=== PATIENT | female | born 1970 | race Caucasian/White ===

== ENCOUNTER 2021-02-08 12:17 | Observation (INO) | payer OTHER, SELFPAY ==
[2021-02-08] VITALS (53 sets, daily range): BP systolic 84–128; BP diastolic 55–85; PULSE 69–93; RESP 10–26; TEMP 36.6–36.7; O2SAT 98–100; BMI 26.8
--- NOTE | ~2021-02-08 | XR_ITS ---
EXAMINATION: XR chest 1V portable EXAM DATE: 02/08/2021 13:09 INDICATION: Chest pain. TECHNIQUE: Portable AP frontal chest x-ray was obtained. There is no prior study for comparison. FINDINGS: The lungs are clear. There are no pleural effusions. Cardiac silhouette is prominent but magnified on this AP technique. There is no pneumothorax suspected. The bones and soft tissues are unremarkable. IMPRESSION: No acute cardiopulmonary findings. Reviewed, dictated and finalized at location A.
--- NOTE | ~2021-02-08 | CT_ITS ---
EXAMINATION: CTA chest PE protocol DATE: 02/08/2021 13:21 INDICATION: Chest pain, dyspnea TECHNIQUE: Computed tomography angiography (CTA) of the chest was performed with 100 mL Omnipaque-350 intravenous contrast timed to evaluate the pulmonary arteries. Coronal maximum intensity projection 3D-reconstructions were created by the technologist. Automated exposure control and iterative reconst ruction technique were employed. Exam dose: 318.53 mGy-cm total exam DLP. COMPARISON: 02/08/2021 portable AP chest FINDINGS: There is diagnostic contrast enhancement of the pulmonary arteries and no evidence of pulmo nary embolism. No thoracic aortic aneurysm or dissection. Normal heart size. No pericardial or pleural effusion. No hilar or mediastinal mass lesion or lymph adenopathy. No pulmonary infiltrate or consolidation or pulmonary mass lesion is detected. Old left anterior third through fifth rib fractures. Old anterior right second, third, fourth and fif th rib fractures. No suspicious osteolytic or osteoblastic lesions. IMPRESSION: No evidence of pulmonary embolism Reviewed, dictated and finalized at Location A. Reviewed, dictated and finalized at location B.
--- NOTE | ~2021-02-08 | NM_ITS ---
EXAMINATION: NM courtney stress w perfusion DATE: 02/09/2021 12:04 INDICATION: Chest pain TECHNIQUE: Rest images were obtained following intravenous administration of 9.7 mCi Tc99m tetrofosmi n (Myoview). The patient was infused intravenously with Lexiscan (Regadenoson). Then, 30.2 mCi Tc99m tetrofosmin (Myoview) was administered intravenously, and stress images were obtained. Data was recon structed into short axis and horizontal and vertical long axis SPECT images. Gated SPECT images were also obtained. COMPARISON: None. FINDINGS: There is no definite reversible or fixed perfusion abnormality to suggest ischemia or infar ction. There is normal left ventricular chamber size, wall motion and ejection fraction. Left ventr icular ejection fraction measures >70%. IMPRESSION: 1. Normal myocardial perfusion at rest and during stress. 2. Left ventricular ejection fraction measuring >70%. Reviewed, dictated and finalized at location A.
--- NOTE | 2021-02-08 12:19 | ECG_ITS ---
Measurements Intervals [place] Rate: 83 P: 55 CO: 152 QRS: 46 QRSD: 92 T: 38 QT: 397 QTc: 469 Interpretive Statements SINUS RHYTHM INCOMPLETE RIGHT BUNDLE BRANCH BLOCK LOW QRS VOLTAGE IN PRECORDIAL LEADS BASELINE ARTIFACT- I, III, AVL BORDERLINE ECG Electronically Signed On 02-08-2021 12:28:24 CDT by Luis M Estevez D.O.
--- NOTE | 2021-02-08 12:39 | ED.CHESTPAIN ---
HPI - Chest Pain General Chief Complaint: Chest Pain Stated Complaint: Chest pain, arm weakness, back pain Time Seen by Provider: 02/08/21 12:21 Source: RN notes reviewed History of Present Illness HPI narrative: Patient presents to emergency department from home for chest pain. Patient states symptoms again proximally 2 hours ago pain is located left side of the chest described as a pressure radiates in the left shoulder and in the left back with tingling in the left arm. Patient states that intermittently during the day today she has had feelings of numbness and tingling in her bilateral arms she states she does have associated shortness of breath denies any fevers or chills abdominal pain nausea vomiting or any other history. Denies any previous cardiac history Related Data Allergies Allergy/AdvReac Type Severity Reaction Status Date / Time No Known Allergies Allergy Verified 02/08/21 12:32 Review of Systems Review of Systems: Gen.: Denies fevers or chills Eyes: Denies eye pain or visual change ENT: Denies congestion Respiratory: Reports shortness of breath CV: See HPI GI: Denies abdominal pain nausea, emesis or diarrhea Musculoskeletal: Denies back pain or muscle pain Neuro: There is numbness and tingling in bilateral arms Skin: Denies rash Except as documented, all other systems reviewed and negative [facility] Past Medical History Medical History (Updated 02/08/21 @ 17:03 by Luciano Jean-Baptiste DO) Hypertension Social History Social History (Updated 02/08/21 @ 12:40 by Luciano Jean-Baptiste DO) Smoking status: Current every day smoker Exam Narrative: APPEARANCE: No acute distress, nontoxic, resting in bed EYES: EOMI HEENT: Normocephalic, atraumatic, OMM Neck: Supple no midline chest palpation full range of motion of the neck bilaterally without pain RESPIRATORY: No respiratory distress Clear to auscultation bilaterally with no rhonchi wheezing or rales. CARDIOVASCULAR: Regular rate and rhythm without murmurs rubs or gallops. Bilateral radial pulse 2+ ABDOMINAL: Soft, nontender, nondistended, no rebound or guarding MUSCULOSKELETAl: Moves all extremities. No clubbing, cyanosis or edema. NEURO: Awake and alert. Following commands, speech normal, no focal deficits SKIN:: Warm, dry. No rashes lesions or abrasions PSYCHIATRIC: Normal affect/mood, Course Course Emergency Course: Patient states pain is resolved following Toradol Discussed with Dr. Estevez agrees with admission to chest pain center Discussed with patient and family results of workup and diagnosis. Discussed need for admission. Patient and family understand and agree to current treatment plan Vital Signs Vital signs: Vital Signs Temperature 97.8 F 02/08/21 12:27 Pulse Rate 93 02/08/21 12:27 Respiratory Rate 18 02/08/21 12:27 Blood Pressure 104/77 02/08/21 12:27 Pulse Oximetry 100 02/08/21 12:27 Temperature 97.8 F 02/08/21 12:27 Pulse Rate 91 02/08/21 12:32 Respiratory Rate 18 02/08/21 12:27 Blood Pressure 104/77 02/08/21 12:27 Pulse Oximetry 100 02/08/21 12:27 MDM - Chest Pain Lab Data Result diagrams: 02/08/21 12:40 02/08/21 12:40 Labs: Lab Results 02/08/21 02/08/21 02/08/21 Range/Units 12:40 12:40 12:40 WBC 5.9 (4.5-10.0) K/mm3 RBC 4.53 (4.2-5.4) M/mm3 Hgb 14.4 (12.0-15.0) g/dL Hct 42.2 (37.0-47.0) % MCV 93.2 (80-100) fl MCH 31.8 (26-34) pg MCHC 34.1 (32-36) g/dl RDW 14.9 H (11.5-14.5) % Plt Count 233 (150-375) k/mm3 MPV 10.0 (7.4-10.4) fl Immature Gran % (Auto) 0.3 (0-0.5) % Neut % (Auto) 47.5 (45.5-73.1) % Lymph % (Auto) 39.1 (18.3-44.2) % [place] % (Auto) 9.6 H (2.6-8.5) % Eos % (Auto) 3.0 (0-4.4) % Baso % (Auto) 0.5 (0.2-1.2) % Lymph # (Auto) 2.32 (0.9-3.2) K/mm3 [place] # (Auto) 0.6 (0.1-0.6) K/mm3 Eos # (Auto) 0.2 (0-0.3) K/mm3 Baso # (Auto) 0.0 (0.0-0.1) K/mm3 A
[2021-02-08 12:48] LABS: Basophils Percent Auto 0.5 % (0.2-1.2); Eosinophils Absolute Auto 0.2 K/mm3 (0-0.3); Hematocrit 42.2 % (37.0-47.0); Hemoglobin 14.4 g/dL (12.0-15.0); Immature Granulocyte Absolute 0.02 K/mm3 (0.00-0.031); Immature Granulocyte Percent A 0.3 % (0-0.5); Lymphocytes Absolute Auto 2.32 K/mm3 (0.9-3.2); Lymphocytes Percent Auto 39.1 % (18.3-44.2); Mean Corpuscular HGB Conc 34.1 g/dl (32-36); Mean Corpuscular Hemoglobin 31.8 pg (26-34); Mean Corpuscular Volume 93.2 fl (80-100); Monocytes Absolute Auto 0.6 K/mm3 (0.1-0.6); Monocytes Percent Auto 9.6 % (2.6-8.5); Neutrophils Absolute Auto 2.8 K/mm3 (1.3-6.7); Neutrophils Percent Auto 47.5 % (45.5-73.1); Platelet Count Result 233 k/mm3 (150-375); Red Blood Count 4.53 M/mm3 (4.2-5.4); Red Cell Distribution Width 14.9 % (11.5-14.5); White Blood Count 5.9 K/mm3 (4.5-10.0)
[2021-02-08 12:57] LABS: INR 0.8; Prothrombin Time 10.7 Seconds (11.1-14.7)
[2021-02-08 12:58] LABS: Anion Gap 16 mmol/L (8-16); Blood Urea Nitrogen 22 mg/dL (7-17); Calcium 8.8 mg/dL (8.4-10.2); Carbon Dioxide 18 mmol/L (22-30); Chloride 99 mmol/L (98-107); Estimated CRCL calculation 45 ml/min; Estimated Glomerular Filt Rate 43; Glucose 92 mg/dL (65-110); Partial Thromboplastin Time 23.1 SECONDS (22.3-36.8); Potassium 3.8 mmol/L (3.4-5.0); Sodium 133 mmol/L (137-145)
[2021-02-08 13:10] LABS: Troponin I < 0.012 ng/mL (0.000-0.034)
[2021-02-08] MEDS: SODIUM CHLORIDE 0.9% IV 1,000 ML 999 ML IV CONT (15:04)
[2021-02-08] MEDS: KETOROLAC 30 MG/ML VIAL (*BKC) IV PUSH (15:04)
--- NOTE | 2021-02-08 16:39 | PM.IMHP ---
H&P: HPI History of Present Illness Date/Time: 02/08/21 16:39 Reason for admit: Chest pain. 51 yr old woman presents to ED with chest pain. She has a history of hypertension. She does drink up to 6 vodka drinks a day and smokes 1 ppd. Reports that this morning while sitting watching tv she noted left shoulder pain and pain in between her scapula and tingling in both hands. It also took her breath away. Discomfort comes and goes and right now it's gone. She also noted fatigue in last 2 days such that she is tired just after showering. She also noted chills and headaches off and on but no fevers. She had Covid vaccine in October. Normally she can walk 4 blocks but not in last 2 days. She knows she has arthritis in hip, knees and fingers and she was told by her PCP she may have rheumatoid arthritis. Denies orthopnea, PND, edema, palpitations, dizziness. Chief Complaint: Chest pain Review of Systems Review of Systems: All systems reviewed & are unremarkable except as noted in HPI and below Constitutional: Constitutional: Reports as per HPI, Reports chills, Reports fatigue and Denies fever(s) Cardiovascular: Cardiovascular: Reports as per HPI, Denies chest pain, Denies leg edema and Denies lightheadedness Respiratory: Respiratory: Reports as per HPI and Denies dyspnea Gastrointestinal: Gastrointestinal: Reports as per HPI and Denies abdominal pain Genitourinary: Genitourinary: Reports as per HPI and Denies dysuria Musculoskeletal: Musculoskeletal: Reports as per HPI, Reports back pain, Reports arthralgias and Reports neck pain Neurologic: Reports as per HPI, Denies dizziness and Denies syncope [facility] Past Medical History Medical History (Updated 02/08/21 @ 16:46 by Luis M Estevez DO) Hypertension Social History Social History (Updated 02/08/21 @ 12:40 by Luciano Jean-Baptiste DO) Smoking status: Current every day smoker Meds Home Medications and Allergies Allergies Allergy/AdvReac Type Severity Reaction Status Date / Time No Known Allergies Allergy Verified 02/08/21 12:32 Vital Signs Vital Signs - 24 hr 02/08/21 12:27 02/08/21 12:32 Temperature 97.8 F Pulse Rate 93 91 Respiratory Rate 18 Blood Pressure 104/77 Pulse Oximetry 100 Exam Const: General: cooperative, healthy appearing and comfortable Resp: Auscultation: clear to auscultation bilaterally, no crackles, no rales, no rhonchi and no wheezes Cardio: Jugular venous distension: no JVD Rate: regular rate Rhythm: regular rhythm Heart sounds: no murmurs GI: GI Palp: No abdominal tenderness and Yes Soft to palpation Neuro: General: oriented to person, oriented to place and oriented to time Extrem: Right lower extremity: no edema Left lower extremity: no edema H&P: Results Labs Labs: Short CBC 02/08/21 Range/Units 12:40 WBC 5.9 (4.5-10.0) K/mm3 Hgb 14.4 (12.0-15.0) g/dL Hct 42.2 (37.0-47.0) % Plt Count 233 (150-375) k/mm3 BMP 02/08/21 12:40 Sodium 133 L Potassium 3.8 Chloride 99 Carbon Dioxide 18 L BUN 22 H Creatinine 1.30 H Glucose 92 Calcium 8.8 Cardiac Enzymes 02/08/21 Range/Units 12:40 Troponin I < 0.012 (0.000-0.034) ng/mL Assessment and Plan Assessment and plan (1) Chest pain: Code(s): R07.9 - Chest pain, unspecified Status: Acute Assessment and Plan: Atypical. Probably arthritis related. EKG and 1st troponin are OK. Await 2 more sets of troponin. If OK, then will obtain lexiscan myoview stress test in AM. (2) Tobacco abuse: Code(s): Z72.0 - Tobacco use Status: Acute Assessment and Plan: Counseled regarding smoking cessation. (3) Alcohol abuse: Code(s): F10.10 - Alcohol abuse, uncomplicated Status: Acute Assessment and Plan: Counseled to decrease alcohol intake to no more than 1 in a given day if at all. (4) Fatigue: Code(s): R53.83 - Other fatigue Status: Acute Assessment
[2021-02-08 16:54] LABS: Alanine Aminotransferase 16 U/L (4-35); Albumin Level 4.3 g/dL (3.5-5.1); Alkaline Phosphatase 80 U/L (38-126); Aspartate Amino Transferase 39 U/L (14-36); Bilirubin,Total 0.2 mg/dL (0.2-1.3); Lipase 135 U/L (23-300)
[2021-02-08 17:53] LABS: Troponin I < 0.012 ng/mL (0.000-0.034)
[2021-02-08 18:26] LABS: Cholesterol 201 mg/dL (0-200); HDL Direct 84 mg/dL; Triglycerides 122 mg/dL (<150)
[2021-02-08 18:38] LABS: LDL Cholesterol Direct 90 mg/dL
[2021-02-08] MEDS: ASPIRIN 81 MG CHEWABLE TABLET 324 MG PO (18:45)
--- NOTE | 2021-02-08 19:50 | ECG_ITS ---
Measurements Intervals [place] Rate: 73 P: 48 CO: 176 QRS: 39 QRSD: 108 T: 32 QT: 412 QTc: 454 Interpretive Statements SINUS RHYTHM INCOMPLETE RIGHT BUNDLE BRANCH BLOCK BORDERLINE ECG Electronically Signed On 02-08-2021 23:22:58 CDT by Luis M Estevez D.O.
[2021-02-09] VITALS: BP 129/79; PULSE 70; PULSE 78; RESP 15; TEMP 36.4; O2SAT 99
--- NOTE | 2021-02-09 | ECHO_ITS ---
Patient Info Name: Ana Quan Age: 51 years : 1970 Gender: Female Ht: 64 in Wt: 158 lbs BSA: 1.82 m2 HR: 72 bpm BP: 136 / 87 mmHg Technical Quality: Good Exam Date: 02/09/2021 2:32 PM Exam Location: [facility] Pulmonary Exam Room: [facility] Patient Status: Outpatient Admit Date: 02/08/2021 Staff Ordering Physician: Luis M Estevez DO Production Control Analyst: Rosalia Yung RDCS Attending Provider: Luis M Estevez DO Referring Physician: Herb SEAMAN; Exam Type: CA echo doppler color flow Study Info Indications - FATIQUE HTN CHEST PAIN Complete two-dimensional, color flow and Doppler transthoracic echocardiogram is performed. Summary 1. Complete two-dimensional, color flow and Doppler transthoracic echocardiogram is performed. 2. Left ventricular chamber dimension is normal. 3. Left ventricular systolic function is normal, estimated at 60-65%. 4. The left ventricular diastolic function is grade II diastolic dysfunction. 5. E/e' 9 is minimally elevated. 6. There is trace tricuspid valve regurgitation. 7. No pulmonary hypertension, estimated pulmonary arterial systolic pressure is 28 mmHg. 8. There is trace pulmonic regurgitation. Left Ventricle E/e' 9 is minimally elevated. Left ventricular chamber dimension is normal. Left ventricular systolic function is normal, estimated at 60-65%. The left ventricular diastolic function is grade II diastolic dysfunction. Right Ventricle Right ventricular chamber dimension is normal. Right ventricular systolic function is normal. Left Atria Left atrial chamber dimension is normal. Right Atria Right atrial chamber dimension is normal. Aortic Valve The aortic valve is trileaflet. There is no aortic valve stenosis. There is no aortic valve regurgitation. Pulmonic Valve There is trace pulmonic regurgitation. Mitral Valve There is no mitral valve stenosis. There is no mitral valve regurgitation. Tricuspid Valve There is trace tricuspid valve regurgitation. No pulmonary hypertension, estimated pulmonary arterial systolic pressure is 28 mmHg. Pericardium/Pleural There is no pericardial effusion. Inferior Vena Cava Normal inferior vena cava with >50% collapse upon inspiration consistent with normal right atrial pressure, 5 mmHg. Aorta The aortic root size at the sinus of Valsalva is normal. Left Ventricular Outflow Tract Name Value Normal LVOT 2D LVOT Diameter 2.0 cm LVOT Doppler LVOT Peak Gradient 7 mmHg LVOT Mean Gradient 4 mmHg LVOT VTI 25 cm LVOT VTI/AV VTI Ratio 0.9 LVOT Stroke Volume 77 ml LVOT CO 18.5 l/min LVOT CI 10.2 l/min/m2 Pulmonic Valve Name Value Normal PV Doppler
[2021-02-09 04:00] VITALS: BP 146/76; PULSE 69; PULSE 76; RESP 16; TEMP 36.5; O2SAT 96
[2021-02-09 08:00] VITALS: BP 136/87; PULSE 70; PULSE 74; RESP 11; RESP 9; TEMP 35.9; O2SAT 100; O2SAT 98
--- NOTE | 2021-02-09 08:00 | EST_ITS ---
Patient Info Name: Ana Quan Age: 51 years : 1970 Gender: Female Ht: 64 in Wt: 156 lbs BSA: 1.80 m2 HR: 67 bpm BP: 141 / 85 mmHg Heart Rhythm: Sinus Rhythm Exam Date: 02/09/2021 11:10 AM Exam Location: [facility] Stress Patient Status: Inpatient Admit Date: 02/08/2021 Staff Ordering Physician: Luis M Estevez DO Attending Provider: Luis M Estevez DO Exercise Physician: Luis M Estevez DO Exam Type: CA stress courtney w NM Study Info Indications R07.89 - Other chest pain A regadenoson stress test was performed. Summary 1. 1. Negative lexiscan stress test for ischemic ST changes by ECG criteria. 2. 2. Baseline hypertension. 3. 3. Nuclear scan to follow and will be reported separately. Please correlate with it. 4. 4. Patient informed of the above results. Protocol: Lexiscan Stress ECG Details Stage: REST Duration (min): 1 min : 2 sec HR (bpm): 68 SBP (mmHg): 141 DBP (mmHg): 85 Stage: REST Duration (min): 8 min : 39 sec HR (bpm): 63 SBP (mmHg): 141 DBP (mmHg): 85 Stage: STAGE 1 Duration (min): 0 min : 59 sec HR (bpm): 86 SBP (mmHg): 152 DBP (mmHg): 89 Stage: RECOVERY Duration (min): 1 min : 0 sec HR (bpm): 96 SBP (mmHg): 152 DBP (mmHg): 89 Stage: RECOVERY Duration (min): 1 min : 59 sec HR (bpm): 97 SBP (mmHg): 120 DBP (mmHg): 86 Rest HR: 63 bpm Peak HR: 104 bpm Rest Sys BP: 141 mmHg Peak Sys BP: 152 mmHg Max Pred HR: 170 bpm % Max Pred HR: 61 % Target HR: 145 bpm Max RPP: 15,808 bpm*mmHg Termination Reason: Completed protocol Cardiac Symptoms: Shortness of breath Total Time: 1 min : 0 sec Rest North BP: 85 mmHg Peak North BP: 89 mmHg Total Dose: 0.4 mg Resting ECG Sinus rhythm. Stress ECG No ST changes. Arrhythmias None. Report Signatures
[2021-02-09 12:00] VITALS: BP 176/101; PULSE 74; RESP 11; TEMP 36.1; O2SAT 98
[2021-02-09] MEDS: lisinopriL 20 MG TABLET PO (12:55)
[2021-02-09 16:00] VITALS: PULSE 74
--- NOTE | 2021-02-09 16:07 | PM.DS ---
DS: Admitting Diagnosis Discharge Date 02/09/21 Admitting Diagnosis Chest pain DS: Summary Hospital Course Hospital Course: Patient was admitted through ER for chest pain/shoulder pain/back pain. She was ruled out for PA by troponin and EKG. She had lexiscan myoview stress test that was normal. Echo was essentially normal. No more chest pain or back pain. Vitals are stable. She does admit to having arthritis. May d/c home and advise to f/u with her PCP in next 1-2 weeks. Continue Lisinopril 20 mg daily for high BP. Disposition: Home. Activity: As tolerated. Diet: Low sodium diet. Time spent discussing smoking cessation with patient: 3 to 10 minutes Status at Discharge Functional status at discharge: independent ambulation Overall status at discharge: patient is back to baseline Time Spent with Patient Time attestation: Total time spent providing and/or coordinating discharge services: Time spent: Less than 30 minutes DS: Data Data Completed and Pending Labs on day of discharge: Labs from last 24 hours 02/08/21 02/08/21 02/08/21 17:18 17:18 15:51 Total Bilirubin Direct Bilirubin AST ALT Alkaline Phosphatase Troponin I < 0.012 Cancelled Total Protein Albumin Triglycerides 122 Cholesterol 201 H LDL Cholesterol Direct 90 HDL Direct 84 Lipase 02/08/21 12:40 Total Bilirubin 0.2 Direct Bilirubin 0.0 AST 39 H ALT 16 Alkaline Phosphatase 80 Troponin I Total Protein 7.0 Albumin 4.3 Triglycerides Cholesterol LDL Cholesterol Direct HDL Direct Lipase 135 Discharge Plan Discharge Consulting providers: Luis M Estevez Discharging Clinician: Luis M Estevez Patient Disposition: Home, Self-Care Activity: as tolerated Diet: low sodium Patient Instructions: Antibiotic Form, How to Stop Smoking (GEN) Stand Alone Forms: General Discharge Information Follow-up/Referrals: Boy,Myron Snider MD [Primary Care Provider] - Discharge Medications: Continued meloxicam 15 mg Tablet 15 mg PO DAILY RF: 0 lisinopril 20 mg Tablet 20 mg PO DAILY RF: 0 albuterol sulfate 90 mcg/actuation HFA aerosol inhaler 1 puff INHALATION PRN PRN (Reason: Shortness Of Breath) RF: 0 Qvar RediHaler 80 mcg/actuation HFA aerosol breath activated 1 inh INHALATION DAILY RF: 0 Date of admission: 02/08/21 16:50 Primary Care Provider: Boy,Myron Snider Admitting Provider: Luis M Estevez Attending physician on admission: Luis M Estevez Condition: Stable
== END 2021-02-09 16:45 | disposition home or self-care (01) ==
LOC: ANHED 17:03 → ANHCPC 18:30
PROVIDERS: Admitting Provider Internal Medicine Cardiovascular Disease; Emergency Provider Emergency Medicine; PCP Family Medicine; Visit Provider Internal Medicine Cardiovascular Disease
DX: R07.9 Chest pain, unspecified (principal); I10 Essential (primary) hypertension; R53.83 Other fatigue; F17.210 Nicotine dependence, cigarettes, uncomplicated; F10.10 Alcohol abuse, uncomplicated
CPT/HCPCS: 36415; 71045; 71275; 78452; 80048; 80061; 80076; 83690; 84484; 85025; 85610; 85730; 93005; 93017; 93306; 96361; 96374; 99285; A9270; A9502; G0378; G0379; J1885; J7030; Q9967

== ENCOUNTER 2023-04-24 00:09 | Day surgery (SDC) | payer OTHER, SELFPAY ==
[2023-04-08 14:44] VITALS: BMI 28.3
--- NOTE | 2023-04-22 10:11 | SUR.PREOP ---
Patient called regarding upcoming procedure. Message left on patient's regarding preop instructions, appointment times, and procedure prep.
--- NOTE | 2023-04-23 15:03 | PM.HPGS ---
History of Present Illness History of Present Illness Consent: Risks, benefits, and alternatives have been discussed and questions answered. Patient agrees to proceed with procedure. Chief complaint: FA Hx colon CA Narrative: Ana Quan is a 53 year old female Referred for colon cancer screening. This is her 1st colonoscopy. She has a family history of colon cancer. Review of Systems Review of Systems: All systems reviewed & are unremarkable except as noted in HPI and below PMFSH Past Medical History Medical History Hypertension Social History Social History Smoking packs per day: 0.5 Smoking cigarettes per day: 10.0 Years smoked: 35 Smoking pack-years: 17.50 Smoking status: Current every day smoker Tobacco type: cigarettes Second hand tobacco smoke exposure: No Alcohol intake: former Alcohol use details: Hx of alcohol abuse (12 beers per night), period of sobriety for 5 years, then 3-4 pints of fireball per week, currently no alcohol since 02/06/2023 Substance use: never Substance use type: does not use Living arrangements: with friend(s) Additional living arrangements comments: lives with boyfriend Wanda Gender identity (if verbalized by the patient): Female Sexual Orientation (if Verbalized by the Patient): Straight or Heterosexual Spiritual care concerns: No Meds Home Medications and Allergies Home Medications Medication Instructions Recorded Confirmed Type albuterol sulfate 90 mcg/actuation 1 puff inhalation PRN PRN 02/08/21 04/24/23 History aerosol inhaler Shortness Of Breath budesonide-formoterol HFA 160 2 puff inhalation BID 04/08/23 04/24/23 History mcg-4.5 mcg/actuation aerosol inhaler (Symbicort) buspirone 15 mg tablet 15 mg PO DAILY 04/08/23 04/24/23 History escitalopram oxalate 10 mg tablet 10 mg PO DAILY 04/08/23 04/24/23 History lisinopril 20 1 tablet PO DAILY 04/08/23 04/24/23 History mg-hydrochlorothiazide 12.5 mg tablet Allergies Allergy/AdvReac Type Severity Reaction Status Date / Time codeine Allergy Nausea and Verified 04/24/23 08:08 Vomiting Exam Resp: Auscultation: clear to auscultation bilaterally Cardio: Rate: regular rate Rhythm: regular rhythm GI: GI Palp: Yes Soft to palpation and No Tenderness to palpation present (GI) Assessment and Plan Assessment and plan (1) Family history of colon cancer: Code(s): Z80.0 - Family history of malignant neoplasm of digestive organs Status: Acute Assessment and Plan: Colonoscopy with possible biopsy or polypectomy or cautery or injection of substances.
[2023-04-24 08:11] VITALS: BP 117/86; PULSE 104; RESP 18; TEMP 36.2; O2SAT 100; BMI 28.0
[2023-04-24] MEDS: LACTATED RINGERS 1,000 ML 150 ML IV CONT (08:14)
--- NOTE | 2023-04-24 08:48 | WPDANESEPPF ---
Anes - Initial Pre Proc Eval Procedure: Operation Date: 04/24/23 09:00 Proposed Procedures p Screening Colonoscopy - Nito Gutierrez MD Date/Time: 04/24/23 08:48 Surgeon: Nito Gutierrez MD Pre Op Diagnosis: FA Hx colon CA Patient Data Age: 53 Gender: F Height: 1.63 m Weight: 74 kg Last Vital Signs Temp 97.1 F L 04/24/23 08:11 Pulse 104 H 04/24/23 08:11 Resp 18 04/24/23 08:11 BP 117/86 04/24/23 08:11 Pulse Ox 100 04/24/23 08:11 O2 Del Method Room Air 04/24/23 08:11 Allergies Allergy/AdvReac Type Severity Reaction Status Date / Time codeine Allergy Nausea and Verified 04/24/23 08:08 Vomiting Home Medications Medication Instructions Recorded Confirmed Type albuterol sulfate 90 mcg/actuation 1 puff inhalation PRN PRN 02/08/21 04/24/23 History aerosol inhaler Shortness Of Breath budesonide-formoterol HFA 160 2 puff inhalation BID 04/08/23 04/24/23 History mcg-4.5 mcg/actuation aerosol inhaler (Symbicort) buspirone 15 mg tablet 15 mg PO DAILY 04/08/23 04/24/23 History escitalopram oxalate 10 mg tablet 10 mg PO DAILY 04/08/23 04/24/23 History lisinopril 20 1 tablet PO DAILY 04/08/23 04/24/23 History mg-hydrochlorothiazide 12.5 mg tablet Patient hx anesthesia problems: none Family hx anesthesia problems: none Results Review: All pre-operative results and documents have been reviewed as part of the pre-operative evaluation. [facility], [facility] Past Medical History Medical History Hypertension Social History Social History Smoking packs per day: 0.5 Smoking cigarettes per day: 10.0 Years smoked: 35 Smoking pack-years: 17.50 Smoking status: Current every day smoker Tobacco type: cigarettes Second hand tobacco smoke exposure: No Alcohol intake: former Alcohol use details: Hx of alcohol abuse (12 beers per night), period of sobriety for 5 years, then 3-4 pints of fireball per week, currently no alcohol since 02/06/2023 Substance use: never Substance use type: does not use Living arrangements: with friend(s) Additional living arrangements comments: lives with boyfriend Wanda Gender identity (if verbalized by the patient): Female Sexual Orientation (if Verbalized by the Patient): Straight or Heterosexual Spiritual care concerns: No Anes - Eval Final PreProcedure Day of Procedure 04/24/23 08:48 Patient weight: normal Heart: regular rate and rhythm Lungs: clear to auscultation Airway: Mallampati scale class II Neurological: alert and oriented Last oral intake: >/= 8 hours ASA classification: III Emergent: no Anesthetic plan: proceed Anesthesia type and monitoring: general GIVS and standard monitoring Results Review: All pre-operative results and documents have been reviewed as part of the pre-operative evaluation. Informed Consent: The patient's anesthetic plan and its attendant risks and benefits were discussed with the patient/family/POA. Questions were solicited and answers provided to the satisfaction of the patient/family/POA.
[2023-04-24] MEDS: SIMETHICONE ORAL SUSPENSION 20 MG/0.3 ML 30 ML BOTTLE 0.6 ML IRRIGATION (08:54)
[2023-04-24 09:05] VITALS: BP 110/77; PULSE 84; RESP 23; O2SAT 100
[2023-04-24 09:15] VITALS: BP 116/80; PULSE 74; RESP 17; O2SAT 100
[2023-04-24 09:25] VITALS: BP 117/79; PULSE 68; RESP 16; O2SAT 100
== END 2023-04-24 09:35 | disposition home or self-care (01) ==
PROVIDERS: PCP Family Medicine; Visit Provider Internal Medicine Gastroenterology
PROC: 0DJD8ZZ Inspection of Lower Intestinal Tract, Via Natural or Artificial Opening Endoscopic (ICD-10-PCS; CPT 45378; principal; 2023-04-24 09:00)
DX: Z12.11 Encounter for screening for malignant neoplasm of colon (principal); K63.5 Polyp of colon; Z80.0 Family history of malignant neoplasm of digestive organs; Z79.51 Long term (current) use of inhaled steroids; I10 Essential (primary) hypertension; F17.210 Nicotine dependence, cigarettes, uncomplicated
CPT/HCPCS: 45385; 45380; 88305; J2704; J7120